=== PATIENT | male | born 1980 ===

== ENCOUNTER → 2018-01-14 | Outpatient (REF) ==
[~2018-01-14] MED LIST: ALB6.7R INH; ONDA8TAB98 PO
[2018-01-14 07:29] LABS: LDL CHOLESTEROL 105 mg/dl
== END ==
DX: Z02.9 Encounter for administrative examinations, unspecified (principal)

== ENCOUNTER 2018-10-30 18:26 | Emergency (ER) | payer OTHER ==
[2018-10-30 18:32] VITALS: BP 133/91
[2018-10-30] MEDS ORDERED: AMOX-362 PO (18:37)
--- NOTE | 2018-10-30 18:38 | ER Report ---
History and Physical Time Seen By MD: 18:37 Hx. of Stated Complaint: patient reports foreign body in esophogus. he was eating ribs for dinner. he tried to drink water and vomited. HPI/ROS CHIEF COMPLAINT: Retained food bolus HISTORY OF PRESENT ILLNESS: 38-year-old male patient presents to emergency room with complaint of retained food bolus. Patient states he was at a restaurant eating ribs. He states that he felt a piece get lodged in his throat. He states he was not able to swallow any saliva after that. Patient states that he feels as if the food bolus has moved down further. He states that he still has no ability to swallow fluids. He denies any fevers, chills, nausea, vomiting or diarrhea. Patient states that he's had this happen before, but has never had the food bolus get stuck to where he was not able to pass it. Allergies: Coded Allergies: No Known Drug Allergies (Unverified , 01/15/14) Home Meds Reported Medications Amoxicillin (AMOXICILLIN) 500 Mg Capsule, 1 CAP PO Q12H, #15 CAPSULE 10/30/18 Albuterol Sulfate (PROVENTIL HFA) 6.7 Gm Inh, 1-2 PUFF INH 3-4XD, INH 01/15/14 Discontinued Scripts Ondansetron (ONDANSETRON ODT) 8 Mg Tab.rapdis, 8 MG PO Q12H, #10 Prov:LIANG OWENS Sanjay DO 01/15/14 Past Medical/Surgical History Patient has a past medical history of asthma, alcohol use. Patient has a surgical history of tonsillectomy. Reviewed Nurses Notes: Yes Hx Smoking: No Smoking Status: Never Smoker Hx Substance Use Disorder: No Hx Alcohol Use: Yes (occ) Constitutional Vital Sign - Last 24 Hours 10/30/18 10/30/18 10/30/18 10/30/18 18:29 18:32 18:41 18:56 Pulse 88 86 87 Resp 20 B/P (MAP) 133/91 (105) 133/91 Pulse Ox 90 96 93 O2 Delivery Room Air 10/30/18 10/30/18 10/30/18 19:11 19:26 19:31 Pulse 83 92 86 Pulse Ox 95 92 95 Physical Exam General appearance: Alert no distress. Respiratory: Chest is non tender, lungs are clear to auscultation. Cardiac: Regular rate and rhythm DIFFERENTIAL DIAGNOSIS: After history and physical exam differential diagnosis was considered for retained food bolus, esophageal stricture Medical Decision Making ED Course/Re-evaluation ED Course Patient was admitted to an exam room, history and physical were obtained. Differential diagnoses were considered. On examination lungs are clear, heart is regular. Patient states that he felt that the bolus may have shifted on him. We did go ahead and have him take a drink of cold. He is not able to keep that down. We then went ahead and started an IV. We gave him 1 g of glucagon. We watched him for Eugenie of 30 minutes. Patient was not able to keep anything down, however he states it felt as if that did start to shift. We then went ahead and ordered Ativan. Prior to the patient receiving any Ativan patient states that he had clear the food bolus and was able to drink. I did witness him drinking without difficulties. We will go ahead and discharge patient home at this time. I do recommend a follow-up with Dr. Larry or Dr. Quiñones, general surgeons, for evaluation and possible EGD. Patient verbalized understanding and agreement with plan. Decision to Disposition Date: Oct 30, 2018 Decision to Disposition Time: 19:39 Depart Departure Latest Vital Signs Vital Signs Date Time Temp Pulse Resp B/P (MAP) Pulse Ox O2 Delivery O2 Flow Rate FiO2 10/30/18 19:31 86 95 10/30/18 18:32 20 133/91 Room Air Impression: Primary Impression: Food impaction of esophagus Condition: Improved Disposition: HOME OR SELF-CARE Referrals: JAY QUIÑONES JOHN A MD Patient Instructions: Food Impaction (ED) Additional Instructions: Take smaller bites when eating. Increase fluid intake. Follow up with a General surgeon to have an EGD to look for strictures. Return to the ER if condition worsens. Problem Qualifiers Primary Impression: Food impaction of esophagus Encounter type: initial encounter Qualified Codes: T18.128A - Food in esophagus causing other injury, initial encounter TERESSASHANNAN ALEIDA Oct 30, 2018 18:37
[2018-10-30] MEDS ORDERED: GLUCAGON 1 MG KIT IM ONE (18:45)
[2018-10-30] MEDS ORDERED: LORazepam 2 MG/ML VIAL IVP ONE (19:35)
== END 2018-10-30 19:45 | disposition home or self-care (01) ==
LOC: ER 18:31
DX: T18.128A Food in esophagus causing other injury, initial encounter (principal)
CPT/HCPCS: 99282; J1610

== ENCOUNTER → 2019-01-14 | Outpatient (REF) ==
[~2019-01-14] MED LIST changes: +AMOX-362 PO
[2019-01-14 07:53] LABS: LDL CHOLESTEROL 107 mg/dl
== END ==
DX: Z02.9 Encounter for administrative examinations, unspecified (principal)